=== PATIENT | male | born 1985 | race Caucasian/White ===

== ENCOUNTER 2022-04-10 14:58 | Emergency (ER) | payer MEDICAID ==
[~2022-04-10] VITALS: Ht 170.2 cm; Wt 89.8 kg
[2022-04-10 15:31] VITALS: BP_SYST 123
[2022-04-10 15:38] VITALS: BP_SYST 123
--- NOTE | 2022-04-10 15:40 | NUR ---
RECEIVED PATIENT IN BED #4 FROM [facility] FOR [facility] LEFT TOE PAIN AFTER DROPPING TABLE ON FOOT. PT IS STABLE, NAD, VSS, AAOX4, SOME MILD BRUISING AND PAIN.
--- NOTE | 2022-04-10 16:00 | NUR ---
ED MD ONEIL AT BEDSIDE FOR ASSISTANCE
[2022-04-10] MEDS ORDERED: IBUP-1971 PO (16:28)
--- NOTE | 2022-04-10 16:43 | NUR ---
Patient given written and verbal discharge instructions and verbalizes understanding. ER MD discussed with patient the results and treatment provided. Patient in stable condition. ID arm band removed. Rx of given. Patient educated on pain management and to follow up with PMD. Pain Scale 0/10. Opportunity for questions provided and answered. Medication side effect fact sheet provided.
== END 2022-04-10 16:43 | disposition home or self-care (01) ==
LOC: SED 14:58
DX: S92.422A Displaced fracture of distal phalanx of left great toe, initial encounter for closed fracture (principal); W20.8XXA Other cause of strike by thrown, projected or falling object, initial encounter; Y93.89 Activity, other specified; Y92.89 Other specified places as the place of occurrence of the external cause; Y99.8 Other external cause status
CPT/HCPCS: 99283

== ENCOUNTER 2023-04-11 17:46 | Emergency (ER) | payer OTHER, MEDICAID ==
[~2023-04-11] VITALS: Ht 162.6 cm; Wt 74.8 kg
[~2023-04-11 17:46] MED LIST: IBUP-1971 PO
--- NOTE | 2023-04-11 17:51 | NUR ---
Patient arrived to ED 7 for c/o toothache. The pain started today according to caregiver. No active distress noted. Caregiver at bedside to help patient. Patient spoke with Dr. Walsh for MSE. Vital signs stable. Will continue to monitor.
--- NOTE | 2023-04-11 17:51 | NUR ---
Patient to ER bed 07 to gown for evaluation. Side rails up.
[2023-04-11 17:56] VITALS: BP_SYST 140
--- NOTE | 2023-04-11 18:36 | NUR ---
Patient given written and verbal discharge instructions and verbalizes understanding. ER MD discussed with patient the results and treatment provided. Patient in stable condition. ID arm band removed. Patient educated on pain management and to follow up with PMD. Opportunity for questions provided and answered. Medication side effect fact sheet provided.
== END 2023-04-11 18:34 | disposition home or self-care (01) ==
LOC: SED 17:46
DX: S09.93XA Unspecified injury of face, initial encounter (principal); Z79.899 Other long term (current) drug therapy; X58.XXXA Exposure to other specified factors, initial encounter; Y93.89 Activity, other specified; Y92.89 Other specified places as the place of occurrence of the external cause; Y99.8 Other external cause status
CPT/HCPCS: 99281